=== PATIENT | male | born 1955 ===

== ENCOUNTER → 2018-09-18 03:00 | Outpatient (REF) | payer OTHER, SELFPAY ==
[2018-09-18 03:54] LABS: Add Manual Diff / Slide Review NO; Basophils Percent Auto 0.5 % (0-2); Hematocrit 46.3 % (41-53); Hemoglobin 15.9 g/dL (13.5-17.5); Lymphocytes Percent Auto 27.4 % (25-40); Mean Corpuscular HGB Conc 34.4 % (30-36); Mean Corpuscular Hemoglobin 32.6 PG (26-34); Monocytes Percent Auto 11.5 % (3-14); Neutrophils Absolute Auto 4500 /uL (1500-7000); Neutrophils Percent Auto 59.6 % (50-75); Platelet Count 174 X10^3/uL (150-400); Red Blood Cell Count 4.88 X10^6/uL (4.5-5.9); Red Cell Distribution Width 13.5 % (11.6-14.8); White Blood Cell Count 7.6 X10^3/uL (4.5-11.0)
[2018-09-18 04:15] LABS: Erythrocyte Sedimentation Rate 13 MM/HR (0-15)
[2018-09-18 05:43] LABS: Alanine Aminotransferase 40 IU/L (21-72); Albumin 4.6 g/dL (3.5-5.0); Albumin Globulin Ratio 1.6 (1.0-2.8); Alkaline Phosphatase 50 U/L (38-126); Aspartate Aminotransferase 22 IU/L (17-59); BUN Creatinine Ratio 15.6 (6-22); Bilirubin Total 0.5 mg/dL (0.2-1.3); Blood Urea Nitrogen 14 mg/dL (9-20); Calcium 9.9 mg/dL (8.4-10.2); Carbon Dioxide 26 mmol/L (22-32); Chloride 102 mmol/L (98-107); Cholesterol 242 mg/dL (140-199); Estimated Glomerular Filt Rate > 60.0 mL/min (>60); Globulin 2.9 g/dL (1.7-4.1); Glucose 167 mg/dL (80-110); HDL Cholesterol 38 mg/dL (40-60); HEMOLYSIS < 15 (0-50); Potassium 4.5 mmol/L (3.4-5.1); Sodium 142 mmol/L (137-145); Total Protein 7.5 g/dL (6.3-8.2); Triglycerides 451 mg/dL (35-150)
[2018-09-18 06:51] LABS: Vitamin D 25 Hydroxy (D3) 37.1 ng/mL (30.0-100.0)
[2018-09-18 07:05] LABS: Thyroid Stimulating Hormone 2.45 uIU/mL (0.47-4.68)
[2018-09-18 07:10] LABS: Hemoglobin A1C% w Est Avg Glu 7.7 % (4.0-6.0)
[2018-09-18 08:46] LABS: C-Reactive Protein Quant 2.1 mg/dL (<1.0)
[2018-09-18 19:08] LABS: Rheumatoid Factor < 8.6 IU/mL (<12.0)
[2018-09-20 19:32] LABS: Hepatitis B Surf Ab Qualitativ Nonreactive (Nonreactive)
[2018-09-21 20:27] LABS: ANA Pattern Speckled; ANA Screen, IFA Positive (Negative); ANA Titer 1:40 titer (<1:40)
[2018-09-21 21:03] LABS: EBV Virus IgM Ab < 36.00 U/mL (< 36.00)
[2018-09-22 09:07] LABS: Hepatitis B Core Antibody Nonreactive (Nonreactive)
[2018-09-22 11:40] LABS: CCP Antibody (IgG) < 16 Units (< 20)
[2018-09-22 15:05] LABS: IgG Subclass 1 273 mg/dL (382-929); IgG Subclass 2 436 mg/dL (241-700); IgG Subclass 3 67 mg/dL (22-178); IgG Subclass 4 53.7 mg/dL (4.0-86.0); IgG Total 888 mg/dL (694-1618)
== END ==
LOC: LAB 03:00
PROVIDERS: Visit Provider Family Medicine
DX: Z00.00 Encounter for general adult medical examination without abnormal findings (principal); Z12.5 Encounter for screening for malignant neoplasm of prostate; Z13.1 Encounter for screening for diabetes mellitus; Z13.220 Encounter for screening for lipoid disorders; R53.83 Other fatigue
CPT/HCPCS: 36415; 80053; 80061; 82306; 83036; 83516; 84443; 85025; 85651; 86038; 86140; 86430; 86663; 86664; 86665; 86704; 86706; 87340